=== PATIENT | male | born 1960 | race Two or more races ===

== ENCOUNTER 2024-11-20 14:12 | Emergency (ER) | payer BC ==
[~2024-11-20] VITALS: Ht 182.9 cm; Wt 106.1 kg
[2024-11-20 14:22] VITALS: TEMP 98.2
[2024-11-20] MEDS: IV NS 0.9% 1,000 ML BAG IV ONE (15:40)
[2024-11-20 15:44] LABS: FRACTIONATED INSPIRED OXYGEN-V 21.0 %; SITE, VBG VBG - N/A; VBG BASE EXCESS 0.0 mmol/L (-2.0-3.0); VBG HCO3 25.1 mmol/L (22.0-29.0); VBG MetHb 0.3 % (0.5-1.5); VBG OXYGEN SATURATION 58.9 % (60.0-85.0); VBG PCO2 42.4 mmHg (38.0-54.0); VBG PH 7.390 (7.320-7.430); VBG PO2 29.5 mmHg (23.0-48.0); VBG TOTAL HEMOGLOBIN 16.1 G/dL (13.5-17.5)
[2024-11-20 16:11] LABS: PLATELET COUNT (AUTO) 215 K/uL (150-450); RED BLOOD CELL COUNT(AUTO) 5.10 MIL/uL (4.5-6.0); RED CELL DISTRIBUTION WIDTH 13.7 % (11.5-15.0); WHITE BLOOD COUNT (AUTO) 9.1 K/uL (4.3-11.0)
[2024-11-20 16:24] LABS: CALCIUM, SERUM 9.3 mg/dL (8.5-10.1); CREATININE 1.4 mg/dL (0.6-1.3); SODIUM SERUM 137.0 mmol/L (136-145); UREA NITROGEN, BLOOD 26.0 mg/dL (7-18)
[2024-11-20 16:30] LABS: APPEARANCE,URINE CLEAR (CLEAR); BLOOD, URINE NEGATIVE Ery/uL (NEGATIVE); LEUKOCYTE ESTERASE ,URINE NEGATIVE (NEGATIVE); NITRITE, URINE NEGATIVE (NEGATIVE); UGLUCOSE 3+ mg/dL (NEGATIVE)
[2024-11-20 16:30] LABS: ASPARTATE AMINOTRANSFERASE 20.0 U/L (15-37); TOTAL PROTEIN, SERUM 7.6 g/dL (6.4-8.2)
[2024-11-20 16:37] LABS: ADD URINE CULTURE NO
[2024-11-20 16:38] LABS: SQUAMOUS EPITHELIAL CELL,UR None Seen /HPF (None Seen)
[2024-11-20 17:30] VITALS: BP 130/84; O2SAT 98
== END 2024-11-20 17:31 | disposition home or self-care (01) ==
LOC: ER 14:28
DX: E11.65 Type 2 diabetes mellitus with hyperglycemia (principal); K85.90 Acute pancreatitis without necrosis or infection, unspecified; I10 Essential (primary) hypertension; E78.5 Hyperlipidemia, unspecified; Z95.5 Presence of coronary angioplasty implant and graft; F32.A Depression, unspecified; F41.9 Anxiety disorder, unspecified
CPT/HCPCS: 99284; 96360; 93005; 82803 ×2; 85025; 80048; 83690; 80076; 81001; 36415; 82962; J7030